=== PATIENT | female | born 1940 | race Caucasian/White ===

== ENCOUNTER 2017-01-13 12:49 | Outpatient (CLI) | payer MEDICARE, MEDICAID ==
--- NOTE | 2017-01-13 14:37 | RAD ---
LEFT HIP RADIOGRAPHS 2 VIEWS: DATE: 01/13/17. PROVIDED CLINICAL HISTORY: Left hip pain. FINDINGS: There is no evidence for a fracture or other acute osseous abnormality. Alignment appears anatomic. Left hip joint space appears preserved. IMPRESSION: No evidence for an acute osseous abnormality. If there is persistent clinical concern, conservative management and followup imaging are advised. POS: OFF
== END 2017-01-13 12:50 | disposition home or self-care (01) ==
LOC: TBSIIMAG 12:49
PROVIDERS: ATTEND Neurological Surgery
DX: M54.16 Radiculopathy, lumbar region (principal); M25.559 Pain in unspecified hip

== ENCOUNTER 2017-01-26 08:33 | Outpatient (CLI) | payer MEDICARE, MEDICAID ==
--- NOTE | 2017-01-26 15:50 | NM ---
NUCLEAR MEDICINE BRAIN IMAGING: HISTORY: Parkinson's disease, right arm tremors. TECHNIQUE: A MATT scan with axial tomographic images of the brain was obtained 3 hours following the intravenous administration of 4.5 mCi Iodine-123 Ioflupane. The patient was pretreated with 130 mg of potassiu m iodide orally 1 hour prior to the injection. FINDINGS: There is normal symmetric uptake in the striate bilaterally, demonstrating symmetric, crescent-shape d focal regions of activity mirrored about the median plane. IMPRESSION: Normal exam. POS: BHVAIN
== END 2017-01-26 08:34 | disposition home or self-care (01) ==
LOC: NM 08:33
PROVIDERS: ATTEND Psychiatry & Neurology Neurology
DX: G20 Parkinson's disease (principal)
CPT/HCPCS: 78607; A9584